=== PATIENT | male | born 1945 | race Caucasian/White ===

== ENCOUNTER 2017-01-17 09:44 | Inpatient (IN) | payer MEDICARE ==
[~2017-01-17] VITALS: Ht 175.3 cm; Wt 96.3 kg
[2017-01-17] VITALS (9 sets, daily range): BP systolic 146–206; BP diastolic 65–98; PULSE 58–70; RESP 18–20; TEMP 97.1–98.2; O2SAT 96–98
[~2017-01-17 09:44] MED LIST: ASPI81 PO; ATOR80TA41 PO; CARV6.25 PO; CLOP75 PO; GABA300 PO; GLYB2.5T3 PO; HYDRA25 PO; LANTUSP SQ; LISI20 PO; LORTA5 PO; METF500 PO; XALA0.00 EACH EYE
[2017-01-17] MEDS ORDERED: SODIUM CHLOR 0.9% 1000 ML INJ 1,000 ML IV ONE (10:08)
[2017-01-17] MEDS ORDERED: CLINDAMYCIN INJ 600 MG in SODIUM CHLORIDE 0.9% INJ 100 ML IV ONE (10:15)
[2017-01-17] MEDS ORDERED: CARV6.252 PO (10:15)
[2017-01-17] MEDS ORDERED: HYDR-3516 PO (10:15)
[2017-01-17] MEDS ORDERED: METF1000 PO (10:15)
[2017-01-17] MEDS ORDERED: ATOR1TAB18 PO (10:15)
[2017-01-17] MEDS ORDERED: AUGM500T7 PO (10:15)
[2017-01-17] MEDS ORDERED: PLAV75TA29 PO (10:15)
[2017-01-17] MEDS ORDERED: LANTINJ SQ (10:15)
[2017-01-17] MEDS ORDERED: GLIM4TAB PO (10:15)
[2017-01-17] MEDS ORDERED: LATA.005%O EACH EYE (10:15)
[2017-01-17] MEDS ORDERED: LISI-515 PO (10:15)
[2017-01-17] MEDS ORDERED: HYDR50TA15 PO (10:15)
[2017-01-17] MEDS ORDERED: NOVOINJ3 SQ (10:15)
[2017-01-17] MEDS ORDERED: GABA300C5 PO (10:15)
[2017-01-17 10:54] LABS: AUTOMATED NEUTROPHIL # 7.1 TH/MM3 (1.8-7.7); BASOPHIL # 0.1 TH/MM3 (0-0.2); EOSINOPHIL # 0.9 TH/MM3 (0-0.4); EOSINOPHIL % 8.6 % (0.0-4.0); HEMATOCRIT 35.9 % (39.0-51.0); LYMPH % 13.1 % (9.0-44.0); LYMPHOCYTE # 1.3 TH/MM3 (1.0-4.8); MEAN CELL VOLUME 90.7 FL (80.0-100.0); MEAN CORPUSCULAR HGB CONC 34.2 % (32.0-36.0); MONO % 6.5 % (0.0-8.0); NEUT % 70.8 % (16.0-70.0); PLATELET COUNT 373 TH/MM3 (150-450); RED BLOOD COUNT 3.95 MIL/MM3 (4.50-5.90); RED CELL DISTRIBUTION WIDTH 12.9 % (11.6-17.2); WHITE BLOOD COUNT 10.1 TH/MM3 (4.0-11.0)
[2017-01-17 10:55] LABS: HEMO FLAGS DIFF FINAL
[2017-01-17 11:01] LABS: CHLORIDE 102 MEQ/L (98-107); POTASSIUM 4.6 MEQ/L (3.5-5.1); SODIUM (NA) 140 MEQ/L (136-145)
[2017-01-17 11:06] LABS: ANION GAP 10 MEQ/L (5-15); APTT (PATIENT) 25.2 SEC (24.3-30.1); BICARBONATE 28.4 MEQ/L (21.0-32.0); BLOOD UREA NITROGEN 24 MG/DL (7-18); MAGNESIUM 1.6 MG/DL (1.5-2.5); PROTHROMBIN TIME - PATIENT 10.7 SEC (9.8-11.6)
[2017-01-17 11:09] LABS: ALT (GPT) 25 U/L (12-78); AST (GOT) 16 U/L (15-37); GLOMERULAR FILTRATION RATE 50 ML/MIN (>89)
[2017-01-17 11:10] LABS: TOTAL BILIRUBIN ADULT 0.7 MG/DL (0.2-1.0)
[2017-01-17 11:12] LABS: ALKALINE PHOSPHATASE 52 U/L (45-117)
--- NOTE | 2017-01-17 11:13 | RADHPO ---
EXAM DATE/TIME: 01/17/2017 10:16 [facility] COMPARISON: No previous studies available for comparison. INDICATIONS: Right ankle pain. MEDICAL HISTORY: Diabetes mellitus type II. SURGICAL HISTORY: None. ENCOUNTER: Initial ACUITY: 2 weeks PAIN SCORE: 4/10 LOCATION: Bottom part of right ankle. FINDINGS: Mild soft tissue swelling is noted involving the medial and lateral malleoli. There is no acute frac ture or dislocation of the right ankle. The ankle mortis in intact. Plantar and Achilles calcaneal spurs are noted. CONCLUSION: 1. Mild soft tissue swelling involving the medial and lateral malleoli without definite underlying f racture identified. 2. Plantar and Achilles calcaneal spurs. Dhiraj Paiz MD on January 17, 2017 at 11:00 Board Certified Radiologist. This report was verified electronically.
--- NOTE | 2017-01-17 11:14 | RADHPO ---
EXAM DATE/TIME: 01/17/2017 10:21 [facility] COMPARISON: No previous studies available for comparison. INDICATIONS : Right foot pain. MEDICAL HISTORY: Diabetes mellitus type II. SURGICAL HISTORY: None. ENCOUNTER: Initial ACUITY: 2 weeks PAIN SCORE: 4/10 LOCATION: Bilateral anterior part of right foot starting from 3rd toe going up foot towards ankle. FINDINGS: Mild degenerative changes are noted involving the right first metatarsal phalangeal joint and first i nterphalangeal joint. There is no acute fracture or dislocation of the right foot. Plantar and Achi lles calcaneal spurs are noted. CONCLUSION: 1. Plantar and Achilles calcaneal spurs. 2. Mild degenerative changes involving the right first metatarsal phalangeal and interphalangeal hasmukh nts. 3. No acute fracture or dislocation. Dhiraj Paiz MD on January 17, 2017 at 11:02 Board Certified Radiologist. This report was verified electronically.
[2017-01-17] MEDS ORDERED: VANCOMYCIN INJ 1,000 MG in SODIUM CHLOR 0.9% 250 ML INJ 250 ML IV ONE (11:30)
--- NOTE | 2017-01-17 11:52 | PD ---
HPI Chief Complaint: Skin Problem Time Seen by Provider: 09:58 Travel History International Travel<30 days: No Contact w/Intl Traveler<30days: No Traveled to known affect area: No History of Present Illness HPI 71-year-old male presents with right foot redness that started on last Sunday. On Sunday he was having fever and chills and so he went to his doctor on and they started him on Augmentin. He states that his fever went away but the redness has spread over the past couple of days so he came here. He states his sugars have been well-controlled. He denies other concurrent complaints. Quality is redness. Severity is right foot going up leg. PFSH Past Medical History Hx Anticoagulant Therapy: Yes (PLAVIX) Arthritis: No Asthma: No Autoimmune Disease: No Anxiety: No Depression: No Heart Rhythm Problems: No Cancer: No Cardiovascular Problems: Yes ([place], STENT, HTN, CHOL) High Cholesterol: Yes Chest Pain: Yes COPD: No Diabetes: Yes Patient Takes Glucophage: Yes Endocrine: Yes GERD: Yes Glaucoma: No Genitourinary: No Hepatitis: No Hiatal Hernia: No Hypertension: Yes Immune Disorder: No Kidney Stones: No Musculoskeletal: Yes (LUMBAR PAIN) Neurologic: Yes (PERIPHERAL NEUROPATHY) Psychiatric: No Reproductive: No Respiratory: No Renal Failure: No Sickle Cell Disease: No Sleep Apnea: Yes (CPAP HS) Thyroid Disease: No Ulcer: No Influenza Vaccination: Yes Past Surgical History Abdominal Surgery: No AICD: No Arteriovenous Shunt: No Body Medical Devices: STENT X1 Cardiac Surgery: Yes (ANGIOPLASTY WITH INSERTION STENT) Ear Surgery: No Endocrine Surgery: No Eye Surgery: No Genitourinary Surgery: No Gynecologic Surgery: No Insulin Pump: No Joint Replacement: No Oral Surgery: No Pacemaker: No Thoracic Surgery: No Other Surgery: Yes Social History Alcohol Use: No Tobacco Use: No Substance Use: No Allergies-Medications (Allergen,Severity, Reaction): Coded Allergies: No Known Allergies (Unverified , 01/17/17) Reported Meds & Prescriptions Reported Meds & Active Scripts Active Reported Xalatan Opth Drops (Latanoprost) 0.005% Drops 1 Drop EACH EYE HS Lantus Solostar Pen Inj (Insulin Glargine) 300 Unit/3 Ml Pen 20 Units SQ HS Novolog Flexpen Inj (Insulin Aspart) 300 Unit/3 Ml Pen 5 Units SQ TIDAC Hydrocodone-Acetaminophen 5-325 mg Tab 1 Tab PO Q6H PRN Augmentin (Amoxicillin-Clavulanate) 500-125 mg Tab 500 Mg PO Q8H Atorvastatin (Atorvastatin Calcium) 80 Mg Tab 80 Mg PO HS Lisinopril 20 Mg Tab 20 Mg PO DAILY Hydralazine (Hydralazine HCl) 50 Mg Tab 50 Mg PO TID Take with a meal Carvedilol 6.25 Mg Tab 6.25 Mg PO BID Plavix (Clopidogrel Bisulfate) 75 Mg Tab 75 Mg PO DAILY Gabapentin 300 Mg Cap 300 Mg PO TID Glimepiride 4 Mg Tab 4 Mg PO BIDAC Metformin (Metformin HCl) 1,000 Mg Tab 1,000 Mg PO BIDPC With meals Review of Systems Except as stated in HPI: all other systems reviewed are Neg Physical Exam Narrative GENERAL: Well-nourished, well-developed patient. SKIN: Erythema and warmth noted to right top of foot that goes up above ankle without associated crepitus or induration HEAD: Normocephalic and atraumatic. EYES: No injection or drainage. ENT: No nasal drainage noted. NECK: Supple, trachea midline. CARDIOVASCULAR: Regular rate and rhythm RESPIRATORY: No increased effort. No accessory muscle use. EXTREMITIES: Mild pitting edema noted to right ankle and foot without specific joint pain, palpable dorsalis pedis pulse noted, sensation grossly intact but history of neuropathy with diabetes NEUROLOGICAL: Awake and alert. Moves all extremities. Normal speech. Data Data Last Documented VS Vital Signs Date Time Temp Pulse Resp B/P Pulse Ox O2 Delivery O2 Flow Rate FiO2 01/17/17 10:51 97 Room Air 01/17/17 09:51 97.6 69 18 184/73 on arrival, stable in ED Orders Complete Blood Count With Diff (01/17/17 10:08) Comprehensive Metabolic Panel (01/17/17 10:08) Prothrombin Time / Inr (Pt) (01/17/17 10:08) Act Partial Throm Time (Ptt) (01/17/17 10:08) Lactic Acid Sepsis Protocol (01/17/17 10:08) Magnesium (Mg) (01/17/17 10:08) Phosphorus (Po4) (01/17/17 10:08) Blood Culture (01/17/17 10:08) Blood Glucose (01/17/17 10:08) Ecg Monitoring (01/17/17 10:08) Iv Access Insert/Monitor (01/17/17 10:08) Oximetry (01/17/17 10:08) Sodium Chlor 0.9% 1000 Ml Inj (Ns 1000 M (01/17/17 10:08) Ankle, Complete ([id number]) (01/17/17 10:08) Foot, Complete ([id number]) (01/17/17 10:08) Clindamycin Inj (Cleocin Inj) (01/17/17 10:15) Vancomycin Inj (Vancomycin Inj) (01/17/17 11:30) Admit Order (Ed Use Only) (01/17/17 11:26) Labs Laboratory Tests Test 01/17/17 10:40 White Blood Count 10.1 TH/MM3 Red Blood Count 3.95 MIL/MM3 Hemoglobin 12.3 GM/DL Hematocrit 35.9 % Mean Corpuscular Volume 90.7 FL Mean Corpuscular Hemoglobin 31.0 PG Mean Corpuscular Hemoglobin 34.2 % Concent Red Cell Distribution Width 12.9 % Platelet Count 373 TH/MM3 Mean Platelet Volume 8.1 FL Neutrophils (%) (Auto) 70.8 % Lymphocytes (%) (Auto) 13.1 % Monocytes (%) (Auto) 6.5 % Eosinophils (%) (Auto) 8.6 % Basophils (%) (Auto) 1.0 % Neutrophils # (Auto) 7.1 TH/MM3 Lymphocytes # (Auto) 1.3 TH/MM3 Monocytes # (Auto) 0.7 TH/MM3 Eosinophils # (Auto) 0.9 TH/MM3 Basophils # (Auto) 0.1 TH/MM3 CBC Comment DIFF FINAL Differential Comment Prothrombin Time 10.7 SEC Prothromb Time International 1.0 RATIO Ratio Activated Partial 25.2 SEC Thromboplast Time Sodium Level 140 MEQ/L Potassium Level 4.6 MEQ/L Chloride Level 102 MEQ/L Carbon Dioxide Level 28.4 MEQ/L Anion Gap 10 MEQ/L Blood Urea Nitrogen 24 MG/DL Creatinine 1.40 MG/DL Estimat Glomerular Filtration 50 ML/MIN Rate Random Glucose 158 MG/DL Lactic Acid Level 1.6 mmol/L Calcium Level 8.8 MG/DL Phosphorus Level 2.9 MG/DL Magnesium Level 1.6 MG/DL Total Bilirubin 0.7 MG/DL Aspartate Amino Transf 16 U/L (AST/SGOT) Alanine Aminotransferase 25 U/L (ALT/SGPT) Alkaline Phosphatase 52 U/L Total Protein 7.4 GM/DL Albumin 3.2 GM/DL MDM Medical Decision Making Medical Screen Exam Complete: Yes Emergency Medical Condition: Yes Medical Record Reviewed: Yes (past history confirmed) Interpretation(s) CBC & BMP Diagram 01/17/17 10:40 X-ray with soft tissue swelling without free air Differential Diagnosis Cellulitis, early osteomyelitis, insect bite Narrative Course Will check blood work, x-ray and dose with clindamycin and vancomycin and reevaluate Patient updated and given age, diabetes and prior antibiotic exposure Will place in observation status which she agrees to. He has no SIRS criteria or signs of sepsis. Physician Communication Physician Communication Doctor afshin states to admit to Dr. woods without telemetry on floor under observation Diagnosis Primary Impression: Cellulitis of right leg Additional Impression: Renal insufficiency Admitting Information Admitting Physician Requests: Observation Sabina Zheng MD Jan 17, 2017 11:52
[2017-01-17] MEDS ORDERED: GLUCAGON 1 MG/ML VIAL OTHER PRN (12:30)
[2017-01-17] MEDS ORDERED: DEXTROSE 50% IN WATER 50 ML VIAL(D50) IV PUSH PRN (12:30)
[2017-01-17] MEDS: GABAPENTIN 300 MG CAP PO SCH ×2 (13:00→17:09)
[2017-01-17] MEDS: hydrALAZINE HCL 50 MG TAB PO SCH ×2 (13:00→17:08)
[2017-01-17] MEDS: INSULIN ASPART SUPPLEMENTAL SCALE SQ SCH ×2 (16:00→21:00)
[2017-01-17] MEDS: GLIMEPIRIDE 4 MG TAB PO SCH (16:00)
[2017-01-17] MEDS: INSULIN ASPART 1,000 UNITS/10 ML VIAL SQ SCH (16:22)
[2017-01-17] MEDS: CLINDAMYCIN 150 MG CAP PO SCH ×2 (17:08→22:57)
[2017-01-17] MEDS: metFORMIN HCL 500 MG TAB PO SCH (17:09)
[2017-01-17] MEDS: LATANOPROST 0.005% OPHT SOLN 2.5 ML BTL EACH EYE SCH (22:56)
[2017-01-17] MEDS: CARVEDILOL 6.25 MG TAB PO SCH (22:57)
[2017-01-17] MEDS: ATORVASTATIN 40 MG TAB PO SCH (22:57)
[2017-01-17] MEDS: INSULIN DETEMIR 100 UNITS/ML VIAL SQ SCH (23:00)
[2017-01-18] VITALS: BP 159/75; PULSE 67; RESP 18; TEMP 97.3; O2SAT 96
[2017-01-18 04:00] VITALS: BP 203/90; PULSE 65; RESP 20; TEMP 96.9; O2SAT 97
[2017-01-18] MEDS: VANCOMYCIN INJ 1,400 MG in SODIUM CHLORID 0.9% 500 ML INJ 500 ML IV SCH (05:22)
[2017-01-18] MEDS: GLIMEPIRIDE 4 MG TAB PO SCH ×2 (05:23→16:33)
[2017-01-18] MEDS: CLINDAMYCIN 150 MG CAP PO SCH ×4 (05:23→23:20)
[2017-01-18] MEDS: INSULIN ASPART SUPPLEMENTAL SCALE SQ SCH ×4 (05:24→21:00)
[2017-01-18] MEDS: cloNIDine HCL 0.1 MG TAB PO PRN ×2 (05:28→13:31)
[2017-01-18] MEDS: INSULIN ASPART 1,000 UNITS/10 ML VIAL SQ SCH ×3 (08:00→16:27)
[2017-01-18] MEDS: hydrALAZINE HCL 50 MG TAB PO SCH ×3 (08:05→18:09)
[2017-01-18] MEDS: CARVEDILOL 6.25 MG TAB PO SCH ×2 (08:05→21:52)
[2017-01-18] MEDS: GABAPENTIN 300 MG CAP PO SCH ×2 (08:05→21:52)
[2017-01-18] MEDS: CLOPIDOGREL 75 MG TAB PO SCH (08:05)
[2017-01-18] MEDS: metFORMIN HCL 500 MG TAB PO SCH ×2 (08:05→18:09)
[2017-01-18] MEDS: LISINOPRIL 20 MG TAB PO SCH (08:06)
[2017-01-18] MEDS: ACETAMINOPHEN/HYDROcodone 325 MG/5 MG TAB PO PRN ×2 (08:11→21:57)
[2017-01-18 10:20] VITALS: BP 195/93; PULSE 62; RESP 15; TEMP 97.6; O2SAT 96
--- NOTE | 2017-01-18 12:58 | MH ---
cc: DALLIN SLADE MD DATE OF ADMISSION 01/17/2017 CHIEF COMPLAINT Redness of the right foot area and lower leg area. HISTORY OF PRESENT ILLNESS This is a 71-year-old very pleasant male with a past medical-surgical history significant for coronary artery disease with a stent placements, hyperlipidemia, chest pain, diabetes mellitus, lower back pain, peripheral neuropathy, uses C-PAP at home. He came to the ER at [facility] complaining of redness, swelling and pain in the right foot and lower leg area and he is having some fever and chills. He went to the see a doctor and was started on Augmentin. He stated that his fever went away, but redness has spread over the past couple of days so he came here. He stated that his sugar has been well controlled. He has a history of diabetes mellitus 2. He denies any other complaint, other than that, nothing significant. His redness is improving since he got admitted to the hospital. Other than that, nothing significant. PAST MEDICAL/SURGICAL HISTORY As dictated above. SOCIAL HISTORY Denies smoking, drinking, taking any drugs. Lives at home with his . He worked at [employer]. FAMILY HISTORY Significant for diabetes mellitus. ALLERGIES NO KNOWN DRUG ALLERGIES. MEDICATIONS Includes: 1. Xalatan ophthalmic drop, one drop each eye at bedtime 2. Lantus 20 units subcutaneous at bedtime 3. NovoLog prophylaxis 5 units subcutaneous three times a day 4. Hydrocodone 5/325 p.o. q6h 5. Augmentin 500 p.o. q8-hour 6. Lipitor 80 mg p.o. at bedtime 7. Lisinopril 20 mg p.o. daily 8. Hydralazine 50 mg p.o. t.i.d. 9. Coreg 6.25 mg p.o. b.i.d. 10. Plavix 75 mg p.o. daily 11. Neurontin 300 mg p.o. t.i.d. 12. Glimepiride 4 mg p.o. b.i.d. 13. Metformin 1000 mg p.o. REVIEW OF SYSTEMS Positive for redness of the right lower extremity and the right foot. All other review of systems are negative. PHYSICAL EXAMINATION This is a 71-year-old male sitting on the bed not in acute distress. VITAL SIGNS: Temperature 97.6, heart rate 62, respiration 15 blood pressure 195/93, O2 saturation 96% room air. HEENT: Normocephalic, atraumatic. EOMI. PERRL. Oral mucosa moist. NECK: Supple. No visible thyromegaly or neck mass. Trachea central. CARDIOVASCULAR: Regular rate and rhythm. RESPIRATORY: Respirations are clear to auscultation bilaterally. ABDOMEN: Soft, nontender. Bowel sounds audible. EXTREMITIES: No cyanosis, no clubbing. Full range of motion of all extremities. Has erythema of the right foot and right lower extremity erythema. SKIN: Warm and dry and also erythema of the right foot and right lower extremity frontal area. Mild tenderness. PSYCH: The patient is cooperative. Mood and affect is normal. LABORATORY DATA Include CBC is totally unremarkable except for a hemoglobin 12.3 low, hematocrit 35.9 low, neutrophils 70.8 high, eosinophils 8.6 high. BMP totally unremarkable except for BUN 24 high creatinine 1.40 high, GFR 50 low, glucose 158 high, lactic acid 1.6, albumin 3.2, PT 10.7, INR 1.0, APTT 25.2. Foot x-ray done shows plantar and Achilles calcaneal spur, mild degenerative changes involving the right first metatarsal phalangeal and interphalangeal joint. No acute fracture or dislocation. Ankle x-ray was done shows mild soft tissue swelling involving the medial and lateral malleoli without definitive underlying fracture identified. Plantar Achilles calcaneal spur. ASSESSMENT/PLAN 1. This is a 71-year-old male who came to the ER diagnosed with cellulitis of the right lower extremity and foot. The patient is on vancomycin. The patient is improving. We will continue vancomycin, we will monitor the patient. 2. History of glaucoma. Continue home medications. 3. History of diabetes mellitus, ADA 1800 calorie diet. NovoLog sliding scale, check blood sugars at bedtime and monitor blood sugar. 4. History of hypertension. Continue home medications. 5. History of coronary artery disease. Continue the home medication. 6. Diabetic neuropathy. Continue with Gabapentin 300 mg p.o. t.i.d. 7. DVT prophylaxis. The patient is on Lovenox 30 mg subcutaneous daily. 8. GI prophylaxis, Protonix 40 mg p.o. daily. 9. The patient is also on clindamycin 300 mg p.o. q6h for cellulitis of the lower extremity. We are going to manage the patient on a daily basis and make recommendations on a daily basis. Dallin Slade MD EA/MADIHA /12:31 PM /12:45 PM
[2017-01-18] MEDS: ENOXAPARIN SODIUM 30 MG/0.3 ML SYRINGE SQ SCH (13:32)
[2017-01-18] MEDS: PANTOPRAZOLE SOD 40 MG DELAYED RELEASE TAB PO SCH (13:47)
[2017-01-18 14:51] VITALS: BP 204/95; PULSE 55; RESP 17; TEMP 96.5; O2SAT 97
[2017-01-18 18:24] VITALS: BP 172/76; PULSE 62; RESP 15; TEMP 96.7; O2SAT 97
[2017-01-18 20:00] VITALS: BP 160/86; PULSE 59; RESP 20; TEMP 96.4; O2SAT 98
[2017-01-18] MEDS: LATANOPROST 0.005% OPHT SOLN 2.5 ML BTL EACH EYE SCH (21:50)
[2017-01-18] MEDS: ATORVASTATIN 40 MG TAB PO SCH (21:51)
[2017-01-18] MEDS: INSULIN DETEMIR 100 UNITS/ML VIAL SQ SCH (21:53)
[2017-01-19] VITALS: BP 160/86; PULSE 60; RESP 20; TEMP 96.6; O2SAT 97
[2017-01-19 04:00] VITALS: BP 150/68; PULSE 54; RESP 20; TEMP 96.5; O2SAT 97
[2017-01-19] MEDS: CLINDAMYCIN 150 MG CAP PO SCH ×4 (06:00→23:23)
[2017-01-19] MEDS: INSULIN ASPART SUPPLEMENTAL SCALE SQ SCH ×4 (06:01→21:00)
[2017-01-19] MEDS: VANCOMYCIN INJ 1,400 MG in SODIUM CHLORID 0.9% 500 ML INJ 500 ML IV SCH (06:01)
[2017-01-19] MEDS: GLIMEPIRIDE 4 MG TAB PO SCH ×2 (06:05→17:18)
[2017-01-19 06:09] LABS: AUTOMATED NEUTROPHIL # 6.6 TH/MM3 (1.8-7.7); BASOPHIL % 0.5 % (0.0-2.0); EOSINOPHIL # 0.5 TH/MM3 (0-0.4); EOSINOPHIL % 5.1 % (0.0-4.0); HEMATOCRIT 33.3 % (39.0-51.0); HEMO FLAGS DIFF FINAL; LYMPH % 16.4 % (9.0-44.0); LYMPHOCYTE # 1.5 TH/MM3 (1.0-4.8); MEAN CELL VOLUME 89.5 FL (80.0-100.0); MEAN CORPUSCULAR HEMOGLOBIN 30.3 PG (27.0-34.0); MEAN CORPUSCULAR HGB CONC 33.9 % (32.0-36.0); MONO % 8.7 % (0.0-8.0); NEUT % 69.3 % (16.0-70.0); PLATELET COUNT 389 TH/MM3 (150-450); RED BLOOD COUNT 3.72 MIL/MM3 (4.50-5.90); RED CELL DISTRIBUTION WIDTH 12.3 % (11.6-17.2); WHITE BLOOD COUNT 9.4 TH/MM3 (4.0-11.0)
[2017-01-19 06:15] LABS: CHLORIDE 106 MEQ/L (98-107); POTASSIUM 4.2 MEQ/L (3.5-5.1); SODIUM (NA) 142 MEQ/L (136-145)
[2017-01-19 06:22] LABS: ANION GAP 8 MEQ/L (5-15); BICARBONATE 28.5 MEQ/L (21.0-32.0)
[2017-01-19 06:31] LABS: ALKALINE PHOSPHATASE 46 U/L (45-117); ALT (GPT) 17 U/L (12-78); AST (GOT) 10 U/L (15-37); BLOOD UREA NITROGEN 15 MG/DL (7-18); GLOMERULAR FILTRATION RATE 75 ML/MIN (>89); TOTAL BILIRUBIN ADULT 0.6 MG/DL (0.2-1.0)
[2017-01-19 08:00] VITALS: BP 185/89; PULSE 60; RESP 19; TEMP 97.1; O2SAT 95
[2017-01-19] MEDS: INSULIN ASPART 1,000 UNITS/10 ML VIAL SQ SCH ×3 (08:00→17:00)
--- NOTE | 2017-01-19 08:24 | HHI.PR ---
Subjective History of Present Illness Patient feel better still have swelling and redness of right lower extremity and foot. Review of Systems Integumentary Skin Remarks Redness of right lower extremity and foot. Vitals/Results Intake & Output 01/18/17 01/18/17 01/19/17 14:59 22:59 06:59 Intake Total 1240 ml 60 ml Balance 1240 ml 60 ml Intake Oral 1240 ml 60 ml # Voids 6 2 # Bowel Movements 1 0 Vital Signs Vital Signs Date Time Temp Pulse Resp B/P Pulse Ox O2 Delivery O2 Flow Rate FiO2 01/19/17 08:00 97.1 60 19 185/89 95 01/19/17 04:00 96.5 54 20 150/68 97 01/19/17 00:00 96.6 60 20 160/86 97 01/18/17 20:00 96.4 59 20 160/86 98 Automatic Cuff 01/18/17 18:24 96.7 62 15 172/76 97 01/18/17 14:51 96.5 55 17 204/95 97 01/18/17 10:20 97.6 62 15 195/93 96 CBC/BMP: 01/19/17 0510 01/19/17 0510 Lab Results Laboratory Tests Test 01/19/17 05:10 White Blood Count 9.4 TH/MM3 Red Blood Count 3.72 MIL/MM3 Hemoglobin 11.3 GM/DL Hematocrit 33.3 % Mean Corpuscular Volume 89.5 FL Mean Corpuscular Hemoglobin 30.3 PG Mean Corpuscular Hemoglobin 33.9 % Concent Red Cell Distribution Width 12.3 % Platelet Count 389 TH/MM3 Mean Platelet Volume 8.3 FL Neutrophils (%) (Auto) 69.3 % Lymphocytes (%) (Auto) 16.4 % Monocytes (%) (Auto) 8.7 % Eosinophils (%) (Auto) 5.1 % Basophils (%) (Auto) 0.5 % Neutrophils # (Auto) 6.6 TH/MM3 Lymphocytes # (Auto) 1.5 TH/MM3 Monocytes # (Auto) 0.8 TH/MM3 Eosinophils # (Auto) 0.5 TH/MM3 Basophils # (Auto) 0.0 TH/MM3 CBC Comment DIFF FINAL Differential Comment Sodium Level 142 MEQ/L Potassium Level 4.2 MEQ/L Chloride Level 106 MEQ/L Carbon Dioxide Level 28.5 MEQ/L Anion Gap 8 MEQ/L Blood Urea Nitrogen 15 MG/DL Creatinine 0.99 MG/DL Estimat Glomerular Filtration 75 ML/MIN Rate Random Glucose 53 MG/DL Calcium Level 8.5 MG/DL Total Bilirubin 0.6 MG/DL Aspartate Amino Transf 10 U/L (AST/SGOT) Alanine Aminotransferase 17 U/L (ALT/SGPT) Alkaline Phosphatase 46 U/L Total Protein 6.3 GM/DL Albumin 2.7 GM/DL Physical Exam General General Appearance: Well Developed, Well Nourished, No Acute Distress, Comfortable Eyes Eye Exam: Pupils Equal, Pupils Reactive, Sclera White, Extraocular Movement Intact Throat Throat Exam: Oral Mucosa [place] & Moist, Oral Pharynx Normal Neck Neck Exam: Neck Supple, Trachea Midline Pulmonary Resp Exam: Clear Bilaterally, Breath Sounds Equal Cardiology CV Exam: Regular, Normal Sinus Rhythm Gastrointestinal/Abdomen GI Exam: Soft, Non-Tender, Bowel Sounds Present Musculoskeletal MS Exam: Joints Intact, Normal Tone Integumentary Skin Exam: Warm, Dry Skin Remarks erythema of right lower extremity and foot... getting better. Extremeties Extremities Exam: No Edema Neurologic Neuro Exam: Alert, Awake, Oriented, Speech Clear, Moving All Extremities, No Focal Deficits Psychiatric Psych Exam: Appropriate Responses VTE Prophylaxis VTE Prophylaxis Meds: Lovenox PUD Prophylasis PUD Prophylaxis: Protonix Assessment/Plan Assessment/Plan ASSESSMENT/PLAN 1. This is a 71-year-old male who came to the ER diagnosed with cellulitis of the right lower extremity and foot. The patient is on vancomycin + clindamycin 300 mg p.o. q6h The patient is improving. we will monitor the patient. 2. History of glaucoma. Continue home medications. 3. History of diabetes mellitus, ADA 1800 calorie diet. NovoLog sliding scale, check blood sugars at bedtime and monitor blood sugar. 4. History of hypertension. Continue home medications. 5. History of coronary artery disease. Continue the home medication. 6. Diabetic neuropathy. Continue with Gabapentin 300 mg p.o. t.i.d. 7. DVT prophylaxis. The patient is on Lovenox 30 mg subcutaneous daily. 8. GI prophylaxis, Protonix 40 mg p.o. daily. We are going to manage the patient on a daily basis and make recommendations on a daily basis. Discussed Condition with: Patient Dallin Patel MD Jan 19, 2017 08:24
[2017-01-19] MEDS: CARVEDILOL 6.25 MG TAB PO SCH ×2 (08:47→23:23)
[2017-01-19] MEDS: PANTOPRAZOLE SOD 40 MG DELAYED RELEASE TAB PO SCH (08:47)
[2017-01-19] MEDS: metFORMIN HCL 500 MG TAB PO SCH ×2 (08:47→17:13)
[2017-01-19] MEDS: GABAPENTIN 300 MG CAP PO SCH ×3 (08:49→17:13)
[2017-01-19] MEDS: LISINOPRIL 20 MG TAB PO SCH (08:50)
[2017-01-19] MEDS: hydrALAZINE HCL 50 MG TAB PO SCH ×3 (08:50→17:13)
[2017-01-19] MEDS: CLOPIDOGREL 75 MG TAB PO SCH (08:50)
[2017-01-19 12:00] VITALS: BP 150/69; PULSE 65; RESP 18; TEMP 97.6; O2SAT 96
[2017-01-19] MEDS: ACETAMINOPHEN/HYDROcodone 325 MG/5 MG TAB PO PRN ×2 (13:26→23:23)
[2017-01-19] MEDS: ENOXAPARIN SODIUM 30 MG/0.3 ML SYRINGE SQ SCH (13:26)
[2017-01-19] MEDS ORDERED: cloNIDine HCL 0.1 MG TAB PO PRN (14:00)
[2017-01-19 16:00] VITALS: BP 162/88; PULSE 65; RESP 17; TEMP 97.6; O2SAT 97
[2017-01-19 21:31] VITALS: BP 187/85; PULSE 64; RESP 12; TEMP 97.3; O2SAT 96
[2017-01-19] MEDS: ATORVASTATIN 40 MG TAB PO SCH (23:23)
[2017-01-19] MEDS: INSULIN DETEMIR 100 UNITS/ML VIAL SQ SCH (23:23)
[2017-01-19] MEDS: LATANOPROST 0.005% OPHT SOLN 2.5 ML BTL EACH EYE SCH (23:24)
[2017-01-20 00:16] VITALS: BP 187/88; PULSE 64; RESP 12; TEMP 97.5; O2SAT 96
[2017-01-20] MEDS: CLINDAMYCIN 150 MG CAP PO SCH ×2 (06:49→12:00)
[2017-01-20] MEDS: VANCOMYCIN INJ 1,400 MG in SODIUM CHLORID 0.9% 500 ML INJ 500 ML IV SCH (06:50)
[2017-01-20] MEDS: INSULIN ASPART SUPPLEMENTAL SCALE SQ SCH ×2 (06:53→12:00)
[2017-01-20] MEDS: GLIMEPIRIDE 4 MG TAB PO SCH (06:53)
[2017-01-20 07:32] LABS: AUTOMATED NEUTROPHIL # 5.1 TH/MM3 (1.8-7.7); BASOPHIL # 0.1 TH/MM3 (0-0.2); BASOPHIL % 0.7 % (0.0-2.0); EOSINOPHIL # 0.5 TH/MM3 (0-0.4); HEMATOCRIT 35.7 % (39.0-51.0); HEMO FLAGS DIFF FINAL; LYMPH % 20.6 % (9.0-44.0); LYMPHOCYTE # 1.7 TH/MM3 (1.0-4.8); MEAN CELL VOLUME 90.7 FL (80.0-100.0); MEAN CORPUSCULAR HEMOGLOBIN 30.5 PG (27.0-34.0); MEAN CORPUSCULAR HGB CONC 33.6 % (32.0-36.0); MONO % 9.3 % (0.0-8.0); NEUT % 63.4 % (16.0-70.0); PLATELET COUNT 374 TH/MM3 (150-450); RED BLOOD COUNT 3.94 MIL/MM3 (4.50-5.90); RED CELL DISTRIBUTION WIDTH 12.8 % (11.6-17.2); WHITE BLOOD COUNT 8.2 TH/MM3 (4.0-11.0)
[2017-01-20 07:37] LABS: CHLORIDE 105 MEQ/L (98-107); POTASSIUM 4.5 MEQ/L (3.5-5.1); SODIUM (NA) 142 MEQ/L (136-145)
[2017-01-20 07:43] LABS: ANION GAP 9 MEQ/L (5-15); BICARBONATE 28.1 MEQ/L (21.0-32.0)
[2017-01-20 07:44] LABS: BLOOD UREA NITROGEN 18 MG/DL (7-18)
[2017-01-20 07:46] LABS: ALT (GPT) 20 U/L (12-78); AST (GOT) 14 U/L (15-37); GLOMERULAR FILTRATION RATE 66 ML/MIN (>89)
[2017-01-20 07:48] LABS: TOTAL BILIRUBIN ADULT 0.4 MG/DL (0.2-1.0)
[2017-01-20 07:49] LABS: ALKALINE PHOSPHATASE 50 U/L (45-117)
[2017-01-20 08:00] VITALS: BP_SYST 180; BP_SYST 207; BP_DIAS 80; BP_DIAS 86; PULSE 61; RESP 18; TEMP 97.9; O2SAT 96
[2017-01-20] MEDS: CARVEDILOL 6.25 MG TAB PO SCH (08:47)
[2017-01-20] MEDS: PANTOPRAZOLE SOD 40 MG DELAYED RELEASE TAB PO SCH (08:48)
[2017-01-20] MEDS: LISINOPRIL 20 MG TAB PO SCH (08:48)
[2017-01-20] MEDS: GABAPENTIN 300 MG CAP PO SCH ×2 (08:48→12:00)
[2017-01-20] MEDS: CLOPIDOGREL 75 MG TAB PO SCH (08:48)
[2017-01-20] MEDS: hydrALAZINE HCL 50 MG TAB PO SCH ×2 (08:48→12:00)
[2017-01-20] MEDS: INSULIN ASPART 1,000 UNITS/10 ML VIAL SQ SCH ×2 (09:15→12:00)
[2017-01-20] MEDS: metFORMIN HCL 500 MG TAB PO SCH (09:15)
--- NOTE | 2017-01-20 09:46 | HHI.PR ---
Subjective History of Present Illness Patient feel better still have swelling and redness of right lower extremity and foot. Review of Systems Integumentary Skin Remarks Redness of right lower extremity and foot. Vitals/Results Intake & Output 01/19/17 01/19/17 01/20/17 15:00 23:00 07:00 Intake Total 240 ml Balance 240 ml Intake Oral 240 ml # Voids 4 0 2 Vital Signs Vital Signs Date Time Temp Pulse Resp B/P Pulse Ox O2 Delivery O2 Flow Rate FiO2 01/20/17 08:00 97.9 61 18 207/86 96 180/80 01/20/17 00:16 97.5 64 12 187/88 96 01/19/17 21:31 97.3 64 12 187/85 96 01/19/17 16:00 97.6 65 17 162/88 97 01/19/17 14:26 20 01/19/17 12:00 97.6 65 18 150/69 96 CBC/BMP: 01/20/17 0702 01/20/17 0702 Lab Results Laboratory Tests Test 01/20/17 07:02 White Blood Count 8.2 TH/MM3 Red Blood Count 3.94 MIL/MM3 Hemoglobin 12.0 GM/DL Hematocrit 35.7 % Mean Corpuscular Volume 90.7 FL Mean Corpuscular Hemoglobin 30.5 PG Mean Corpuscular Hemoglobin 33.6 % Concent Red Cell Distribution Width 12.8 % Platelet Count 374 TH/MM3 Mean Platelet Volume 8.0 FL Neutrophils (%) (Auto) 63.4 % Lymphocytes (%) (Auto) 20.6 % Monocytes (%) (Auto) 9.3 % Eosinophils (%) (Auto) 6.0 % Basophils (%) (Auto) 0.7 % Neutrophils # (Auto) 5.1 TH/MM3 Lymphocytes # (Auto) 1.7 TH/MM3 Monocytes # (Auto) 0.8 TH/MM3 Eosinophils # (Auto) 0.5 TH/MM3 Basophils # (Auto) 0.1 TH/MM3 CBC Comment DIFF FINAL Differential Comment Sodium Level 142 MEQ/L Potassium Level 4.5 MEQ/L Chloride Level 105 MEQ/L Carbon Dioxide Level 28.1 MEQ/L Anion Gap 9 MEQ/L Blood Urea Nitrogen 18 MG/DL Creatinine 1.10 MG/DL Estimat Glomerular Filtration 66 ML/MIN Rate Random Glucose 88 MG/DL Calcium Level 8.9 MG/DL Total Bilirubin 0.4 MG/DL Aspartate Amino Transf 14 U/L (AST/SGOT) Alanine Aminotransferase 20 U/L (ALT/SGPT) Alkaline Phosphatase 50 U/L Total Protein 6.7 GM/DL Albumin 2.9 GM/DL Physical Exam General General Appearance: Well Developed, Well Nourished, No Acute Distress, Comfortable Eyes Eye Exam: Pupils Equal, Pupils Reactive, Sclera White, Extraocular Movement Intact Throat Throat Exam: Oral Mucosa [place] & Moist, Oral Pharynx Normal Neck Neck Exam: Neck Supple, Trachea Midline Pulmonary Resp Exam: Clear Bilaterally, Breath Sounds Equal Cardiology CV Exam: Regular, Normal Sinus Rhythm Gastrointestinal/Abdomen GI Exam: Soft, Non-Tender, Bowel Sounds Present Musculoskeletal MS Exam: Joints Intact, Normal Tone Integumentary Skin Exam: Warm, Dry Skin Remarks erythema of right lower extremity and foot... getting better. Extremeties Extremities Exam: No Edema Neurologic Neuro Exam: Alert, Awake, Oriented, Speech Clear, Moving All Extremities, No Focal Deficits Psychiatric Psych Exam: Appropriate Responses VTE Prophylaxis VTE Prophylaxis Meds: Lovenox PUD Prophylasis PUD Prophylaxis: Protonix Assessment/Plan Assessment/Plan ASSESSMENT/PLAN 1. This is a 71-year-old male who came to the ER diagnosed with cellulitis of the right lower extremity and foot. The patient is on vancomycin + clindamycin 300 mg p.o. q6h The patient is improving. we will monitor the patient. 2. History of glaucoma. Continue home medications. 3. History of diabetes mellitus, ADA 1800 calorie diet. NovoLog sliding scale, check blood sugars at bedtime and monitor blood sugar. 4. History of hypertension. Continue home medications. 5. History of coronary artery disease. Continue the home medication. 6. Diabetic neuropathy. Continue with Gabapentin 300 mg p.o. t.i.d. 7. DVT prophylaxis. The patient is on Lovenox 30 mg subcutaneous daily. 8. GI prophylaxis, Protonix 40 mg p.o. daily. We are going to manage the patient on a daily basis and make recommendations on a daily basis. Discussed Condition with: Patient Dallin Patel MD Jan 20, 2017 09:46
[2017-01-20] MEDS ORDERED: CLIN150 PO (10:07)
[2017-01-20 10:30] VITALS: BP 164/90; PULSE 62; RESP 18; O2SAT 100
[2017-01-20 12:00] VITALS: BP 154/81; PULSE 65; RESP 16; TEMP 98.4; O2SAT 97
[2017-01-20] MEDS: ENOXAPARIN SODIUM 30 MG/0.3 ML SYRINGE SQ SCH (12:01)
== END 2017-01-20 14:37 | disposition home or self-care (01) | DRG 603 ==
LOC: PHED 09:44 → PHEDA 11:26 → PH3B 12:46 → OBSVTOIN 01-20 10:12
PROVIDERS: ADMIT Family Medicine; ATTEND Family Medicine
DX: L03.115 Cellulitis of right lower limb (principal); E11.42 Type 2 diabetes mellitus with diabetic polyneuropathy; I10 Essential (primary) hypertension; H40.9 Unspecified glaucoma; I25.10 Atherosclerotic heart disease of native coronary artery without angina pectoris; E78.5 Hyperlipidemia, unspecified; K21.9 Gastro-esophageal reflux disease without esophagitis; G47.30 Sleep apnea, unspecified; N28.9 Disorder of kidney and ureter, unspecified; Z95.5 Presence of coronary angioplasty implant and graft; Z79.4 Long term (current) use of insulin
CPT/HCPCS: 73610; 73630; 80053; 82948; 83605; 83735; 84100; 85025; 85610; 85730; 87040; 96365; 96375; G0378; J1650; J1815; J3370; J7030; J7040; J7050

== ENCOUNTER → 2017-01-31 | Outpatient (CLI) | payer MEDICARE ==
[~2017-01-31] MED LIST changes: -ASPI81 PO; +ATOR1TAB18 PO; -ATOR80TA41 PO; +AUGM500T7 PO; -CARV6.25 PO; +CARV6.252 PO; +CLIN150 PO; -CLOP75 PO; -GABA300 PO; +GABA300C5 PO; +GLIM4TAB PO; -GLYB2.5T3 PO; +HYDR-3516 PO; +HYDR50TA15 PO; -HYDRA25 PO; +LANTINJ SQ; -LANTUSP SQ; +LATA.005%O EACH EYE; +LISI-515 PO; -LISI20 PO; -LORTA5 PO; +METF1000 PO; -METF500 PO; +NOVOINJ3 SQ; +PLAV75TA29 PO; -XALA0.00 EACH EYE
[2017-01-31 09:48] LABS: ALKALINE PHOSPHATASE 49 U/L (45-117); ALT (GPT) 23 U/L (12-78); ANION GAP 8 MEQ/L (5-15); AST (GOT) 15 U/L (15-37); BICARBONATE 27.9 MEQ/L (21.0-32.0); BLOOD UREA NITROGEN 26 MG/DL (7-18); CHLORIDE 107 MEQ/L (98-107); GLOMERULAR FILTRATION RATE 44 ML/MIN (>89); GLUCOSE,FASTING 146 MG/DL (74-99); HDL CHOLESTEROL 52.9 MG/DL (40.0-60.0); LDL CHOLESTEROL 53 MG/DL (0-99); POTASSIUM 5.6 MEQ/L (3.5-5.1); SODIUM (NA) 143 MEQ/L (136-145); TOTAL BILIRUBIN ADULT 0.5 MG/DL (0.2-1.0)
[2017-01-31 16:21] LABS: HEMOGLOBIN A1a 1.1 %; HEMOGLOBIN A1b 2.4 %; HEMOGLOBIN Ao 82.1 %; HEMOGLOBIN LA1C 2.2 %; HEMOGLOBIN P3 4.1 %
== END ==
LOC: PLAB 07:16
PROVIDERS: ATTEND Internal Medicine Endocrinology, Diabetes & Metabolism
DX: E11.40 Type 2 diabetes mellitus with diabetic neuropathy, unspecified (principal); I10 Essential (primary) hypertension; E78.5 Hyperlipidemia, unspecified
CPT/HCPCS: 36415; 80053; 80061; 83036

== ENCOUNTER → 2017-05-03 | Outpatient (CLI) | payer MEDICARE ==
[2017-05-03 10:13] LABS: BICARBONATE 29.9 MEQ/L (21.0-32.0); POTASSIUM 4.5 MEQ/L (3.5-5.1)
== END ==
LOC: CLAB 09:03
PROVIDERS: ATTEND Internal Medicine Interventional Cardiology
DX: N28.9 Disorder of kidney and ureter, unspecified (principal)
CPT/HCPCS: 36415; 80048

== ENCOUNTER → 2017-07-17 | Outpatient (CLI) | payer MEDICARE ==
[~2017-07-17] MED LIST changes: +HYDR-3801 PO; +HYDR12.57 PO
[2017-07-17 13:20] LABS: ANION GAP 9 MEQ/L (5-15); AST (GOT) 13 U/L (15-37); BICARBONATE 27.1 MEQ/L (21.0-32.0); BLOOD UREA NITROGEN 27 MG/DL (7-18); CHLORIDE 105 MEQ/L (98-107); GLOMERULAR FILTRATION RATE 50 ML/MIN (>89); GLUCOSE,FASTING 102 MG/DL (74-99); POTASSIUM 4.7 MEQ/L (3.5-5.1); SODIUM (NA) 141 MEQ/L (136-145)
[2017-07-17 13:21] LABS: ALT (GPT) 28 U/L (12-78)
[2017-07-17 13:30] LABS: ALKALINE PHOSPHATASE 55 U/L (45-117); FREE T4 1.05 NG/DL (0.76-1.46); HDL CHOLESTEROL 48.8 MG/DL (40.0-60.0); LDL CHOLESTEROL 27 MG/DL (0-99); TOTAL BILIRUBIN ADULT 0.6 MG/DL (0.2-1.0)
[2017-07-17 17:59] LABS: HEMOGLOBIN A1b 1.2 %; HEMOGLOBIN Ao 81.9 %; HEMOGLOBIN F 1.1 %; HEMOGLOBIN LA1C 2.1 %; HEMOGLOBIN P3 4.3 %
[2017-07-17 18:08] LABS: HEMOGLOBIN A1a 1.3 %
== END ==
LOC: PLAB 08:52
PROVIDERS: ATTEND Internal Medicine Endocrinology, Diabetes & Metabolism
DX: E11.9 Type 2 diabetes mellitus without complications (principal); I10 Essential (primary) hypertension; E78.5 Hyperlipidemia, unspecified; E03.9 Hypothyroidism, unspecified; E55.9 Vitamin D deficiency, unspecified
CPT/HCPCS: 36415; 80053; 80061; 82088; 82306; 83036; 84244; 84439; 84443

== ENCOUNTER → 2018-03-19 | Day surgery (SDC) | payer MEDICARE ==
[~2018-03-19] MED LIST changes: -ATOR1TAB18 PO; +ATOR80TA45 PO; -AUGM500T7 PO; +BUPIVACAINE HCL PF 0.75% 30 ML VIAL ONE; -CLIN150 PO; -HYDR50TA15 PO; +TRIAMCINOLONE ACETONIDE 40 MG/ML VIAL I-ARTICULR ONE
--- NOTE | 2018-03-19 07:48 | M6 ---
cc: Manuel Bailey MD DATE: 03/19/2018 PROCEDURE PERFORMED: Fluoroscopically-guided injection left lumbar facet joints (left L3-4, L4-5 and L5-S1 facet joints). History and physical was completed and signed. Consent was signed. Procedure site was marked. Medications were listed and reconciled. Pain score was recorded. Allergies were noted. Time out was taken. Fluoroscopy time was recorded where applicable. Sedation was administered or directed by Dr. Bailey. The patient was given oxygen. The patient was monitored by a registered nurse. Total procedure time was greater than 15 minutes. PROCEDURE NOTE: Blood pressure, cuff pulse oximeter and EKG were applied. The patient was placed in the prone position on a Moisés table. His back was prepped with alcohol and 10% Betadine solution, draped with sterile drapes. Fluoroscopy was used in a Horace dog view to clearly visualize the left lumbar facet joints at L3-4, L4-5 and L5-S1. Separate sterile 3-1/2 inch, 25 gauge spinal needles were advanced into these joints under fluoroscopic guidance. There was negative aspiration for blood or any other type of fluid. At each location, the patient was given 1 mL of Marcaine 0.75% which contained 10 mg of Kenalog. Following the procedure, the patient was taken to the recovery room with stable vital signs neurologically intact. He will be evaluated immediately and with followup to determine if he has a subjective decrease in his usual pain and a corresponding objective increase in his functional capabilities. MD TABBY Pratt/DARREN , 07:38 AM , 07:47 AM
== END | disposition home or self-care (01) ==
LOC: PHSDC 06:22
PROVIDERS: ATTEND Pain Medicine Interventional Pain Medicine
DX: M54.5 Low back pain (principal); M25.552 Pain in left hip
CPT/HCPCS: 64493; 64494; 64495; J3301

== ENCOUNTER → 2018-04-03 | Day surgery (SDC) | payer MEDICARE ==
[~2018-04-03] MED LIST changes: +BUPIVACAINE HCL PF 0.5% 30 ML VIAL ONE; -BUPIVACAINE HCL PF 0.75% 30 ML VIAL ONE; +methylPREDNISolone ACETATE 40 MG/ML VIAL I-ARTICULR ONE
--- NOTE | 2018-04-03 07:40 | M6 ---
cc: Manuel Bailey MD DATE: 04/03/2018 DATE OF PROCEDURE: 04/03/2018 PROCEDURE PERFORMED: Fluoroscopically-guided injection left sacroiliac joint. History and physical was completed and signed. Consent was signed. Procedure site was marked. Medications were listed and reconciled. Pain score was recorded. Allergies were noted. Time out was taken. Fluoroscopy time was recorded where applicable. Blood pressure cuff, pulse oximeter and EKG were applied. The patient was placed in the prone position on Moisés table. His back was prepped with alcohol and Betadine and draped with sterile drapes. Fluoroscopy was used shooting from medial to lateral to clearly visualize the posterior joint line of the left sacroiliac joint. The skin was infiltrated with 0.5% Marcaine. Then, a 5-inch, 22-gauge spinal needle was advanced under fluoroscopic guidance into the joint. There was negative aspiration for blood or any other type of fluid and the patient was given 2 mL of 0.5% Marcaine, 20 mg of Depo-Medrol and 20 mg of Kenalog. Following the procedure, the patient was taken to the recovery room with stable vital signs, neurologically intact. MD TABBY Pratt/EMI , 07:30 AM , 07:39 AM
== END | disposition home or self-care (01) ==
LOC: PHSDC 06:27
PROVIDERS: ATTEND Pain Medicine Interventional Pain Medicine
DX: M54.5 Low back pain (principal)
CPT/HCPCS: G0260; J1030; J3301; 27096